=== PATIENT | female | born 1970 | race African-American/Black ===

== ENCOUNTER 2017-12-20 23:42 | Observation (INO) ==
[2017-12-21] MEDS ORDERED: SODIUM CHLORIDE 0.9% 1,000 ML IV PRN ×2 (01:25→07:53)
[2017-12-21] MEDS ORDERED: ONDANSETRON 4 MG/2 ML VIAL IV PRN (02:35)
[2017-12-21] MEDS ORDERED: ACETAMINOPHEN 325 MG TABLET PO PRN (02:35)
[2017-12-21] MEDS ORDERED: DEXTROSE 50% 25 GM/50 ML VIAL IV PRN (02:35)
[2017-12-21] MEDS ORDERED: GLUCAGON 1 MG VIAL IM PRN (02:35)
[2017-12-21 02:39] LABS: Basophils % 0.1 % (0.0-0.8); Eosinophils # 0.3 10*3/uL (0.0-0.87); Eosinophils % 2.6 % (0.00-10.9); Immature Granulocytes % 0.5 %; Immature Granulocytes Absolute 0.05 #; Lymphocytes # 2.6 10*3/uL (1.4-4.0); Lymphocytes % 24.1 % (21.3-54.2); Mean Corpuscular HGB Conc 25.6 GM/DL (32-36); Mean Corpuscular Hemoglobin 14 PG (27-34); Mean Corpuscular Volume 55.1 FL (87-102); Mean Platelet Volume 10.4 FL (9.6-12.0); Monocytes # 0.7 10*3/uL (0.11-0.8); Monocytes % 6.3 % (1.7-12.7); NRBC # 0.06 10*3/uL; Neutrophils # 7.1 10*3/uL (1.4-7.4); Neutrophils % 66.4 % (38.7-73.9); Platelet Count 649 T/CUMM (130-400); Red Blood Count 3.12 MC/CUMM (3.8-5.5); Red Cell Distribution Width 22.2 % (9.3-17.3); White Blood Count 10.7 T/CUMM (4-12)
[2017-12-21] MEDS ORDERED: ALBUTEROL 2.5 MG/3 ML NEB RESP TX PRN (02:42)
[2017-12-21 02:43] LABS: Alanine Aminotransferase 12 U/L (13-56); Albumin 3.3 G/DL (3.4-5.0); Alkaline Phosphatase 82 U/L (45-117); Aspartate Amino Transferase 13 U/L (0-37); Bilirubin,Total < 0.39 MG/DL (0.2-1.0); Blood Urea Nitrogen 11 MG/DL (7-18); Glucose 100 MG/DL (74-106); Hematocrit 17.2 VOL% (35.7-47.0); Hemoglobin 4.4 GM/DL (12.0-16.0); Potassium 3.7 MMOL/L (3.5-5.1); Sodium 136 MMOL/L (136-145); Total Protein 8.5 G/DL (6.4-8.3)
[2017-12-21] MEDS ORDERED: SODIUM CHLORIDE 0.9% IV ONE (03:43)
[2017-12-21] MEDS ORDERED: IRON DEXTRAN IV ONE (03:43)
[2017-12-21] MEDS ORDERED: IRON DEXTRAN 25 MG in SYRINGE 1 EACH IV ONE (03:43)
[2017-12-21] MEDS ORDERED: IRON DEXTRAN 1,000 MG in SODIUM CHLORIDE 0.9% 500 ML IV ONE (03:45)
[2017-12-21 03:49] LABS: Thyroid Stimulating Hormone 0.97 uIU/ml (0.358-3.74)
[2017-12-21] MEDS ORDERED: IRON SUCROSE 200 MG in SODIUM CHLORIDE 0.9% 100 ML IV ONE (04:01)
[2017-12-21 08:05] LABS: Folate 12.6 NG/ML (5.4-24.0); Vitamin B12 376 PG/ML (211-911)
[2017-12-21 08:13] LABS: Basophils % 0.2 % (0.0-0.8); Eosinophils # 0.2 10*3/uL (0.0-0.87); Eosinophils % 2.3 % (0.00-10.9); Hematocrit 18.2 VOL% (35.7-47.0); Immature Granulocytes % 0.7 %; Immature Granulocytes Absolute 0.07 #; Lymphocytes # 2.4 10*3/uL (1.4-4.0); Lymphocytes % 22.1 % (21.3-54.2); Mean Corpuscular HGB Conc 25.8 GM/DL (32-36); Mean Corpuscular Hemoglobin 15 PG (27-34); Mean Corpuscular Volume 58.1 FL (87-102); Mean Platelet Volume 9.8 FL (9.6-12.0); Monocytes # 0.7 10*3/uL (0.11-0.8); Monocytes % 6.2 % (1.7-12.7); NRBC # 0.05 10*3/uL; Neutrophils # 7.3 10*3/uL (1.4-7.4); Neutrophils % 68.5 % (38.7-73.9); Platelet Count 606 T/CUMM (130-400); Red Blood Count 3.13 MC/CUMM (3.8-5.5); Red Cell Distribution Width 24.5 % (9.3-17.3); White Blood Count 10.6 T/CUMM (4-12)
[2017-12-21 08:15] LABS: Hemoglobin 4.7 GM/DL (12.0-16.0)
[2017-12-21] MEDS: INSULIN LISPRO 100 UNIT/ML SUBCUT SCH ×4 (08:22→21:12)
[2017-12-21 08:42] LABS: Hypochromasia 2+; Microcytosis 1+; Platelet Estimate Increased; Polychromasia Slight; Spherocytes Few; Target Cells 1+
[2017-12-21] MEDS: LOSARTAN/HCTZ 50-12.5 MG TABLET PO SCH (08:46)
[2017-12-21] MEDS: FERROUS SULFATE 325 MG TABLET PO SCH ×2 (08:46→20:19)
[2017-12-21] MEDS: metFORMIN 500 MG TABLET PO SCH ×2 (08:46→20:19)
[2017-12-21] MEDS: PANTOPRAZOLE 40 MG TABLET PO SCH (08:46)
[2017-12-21] MEDS: POTASSIUM CHLORIDE 20 MEQ TABLET PO SCH (08:46)
[2017-12-21] MEDS: BUDESONIDE/FORMOTEROL 160-4.5 INHALER 6 GM INH SCH ×2 (08:47→20:19)
[2017-12-21] MEDS: MOMETASONE/FORMOTEROL 200-5 INHALER 8.8 GM INH SCH ×2 (08:47→20:19)
[2017-12-21 09:26] LABS: Sedimentation Rate-Westergren 92 MM/HR (0-20)
[2017-12-21 12:45] LABS: Eosinophils 2 % (0-10); Lymphocytes 30 % (20-55); Segmented Neutrophils 59 % (50-85); Total Cells Counted 100
[2017-12-21 12:46] LABS: Hypochromasia 2+; Macrocytosis 1+; Platelet Estimate Increased; Polychromasia Slight; Target Cells Slight
[2017-12-21 19:08] LABS: Hematocrit 24.9 VOL% (35.7-47.0)
[2017-12-21 19:18] LABS: PT Patient Result 10.2 SECS
[2017-12-22 06:59] LABS: Calcium 8.9 MG/DL (8.5-10.1); Osmolality,Calculated 275.5 MOS/KG (273-304); Potassium 3.8 MMOL/L (3.5-5.1)
[2017-12-22 07:07] LABS: Basophils # 0.1 10*3/uL (0.0-0.2); Basophils % 0.5 % (0.0-0.8); Eosinophils # 0.5 10*3/uL (0.0-0.87); Eosinophils % 3.5 % (0.00-10.9); Hematocrit 24.2 VOL% (35.7-47.0); Hemoglobin 7.2 GM/DL (12.0-16.0); Immature Granulocytes % 1.5 %; Immature Granulocytes Absolute 0.19 #; Lymphocytes # 1.8 10*3/uL (1.4-4.0); Lymphocytes % 14.3 % (21.3-54.2); Mean Corpuscular HGB Conc 29.8 GM/DL (32-36); Mean Corpuscular Hemoglobin 19 PG (27-34); Mean Corpuscular Volume 64.7 FL (87-102); Mean Platelet Volume 10.3 FL (9.6-12.0); Monocytes # 0.9 10*3/uL (0.11-0.8); Monocytes % 6.7 % (1.7-12.7); Neutrophils # 9.4 10*3/uL (1.4-7.4); Neutrophils % 73.5 % (38.7-73.9); Platelet Count 538 T/CUMM (130-400); Red Blood Count 3.74 MC/CUMM (3.8-5.5); Red Cell Distribution Width 31.8 % (9.3-17.3); White Blood Count 12.8 T/CUMM (4-12)
[2017-12-22] MEDS ORDERED: SODIUM CHLORIDE 0.9% 1,000 ML IV PRN (07:28)
[2017-12-22 07:41] LABS: Anisocytosis 2+; Microcytosis 3+; Polychromasia 1+
[2017-12-22 07:42] LABS: Platelet Estimate Increased; Poikilocytosis Few
[2017-12-22] MEDS: INSULIN LISPRO 100 UNIT/ML SUBCUT SCH ×3 (09:42→16:37)
[2017-12-22] MEDS: POTASSIUM CHLORIDE 20 MEQ TABLET PO SCH (09:43)
[2017-12-22] MEDS: FERROUS SULFATE 325 MG TABLET PO SCH (09:43)
[2017-12-22] MEDS: PANTOPRAZOLE 40 MG TABLET PO SCH (09:43)
[2017-12-22] MEDS: metFORMIN 500 MG TABLET PO SCH (09:43)
[2017-12-22] MEDS: LOSARTAN/HCTZ 50-12.5 MG TABLET PO SCH (09:43)
[2017-12-22] MEDS: BUDESONIDE/FORMOTEROL 160-4.5 INHALER 6 GM INH SCH (09:43)
[2017-12-22] MEDS: MOMETASONE/FORMOTEROL 200-5 INHALER 8.8 GM INH SCH (09:43)
[2017-12-22 18:28] VITALS: BP 146/91
[2017-12-23 08:39] LABS: Hemoglobin A1 (Alkaline) 97.6 % (96.5-98.5); Hemoglobin A2 (Alkaline) 2.4 % (1.5-3.5)
== END 2017-12-22 18:15 | disposition home or self-care (01) ==
LOC: N.ED 23:42 → N.EDINP 23:42 → N.4E 12-21 03:59